=== PATIENT | female | born 1925 | race Caucasian/White ===

== ENCOUNTER 2017-01-01 10:52 | Inpatient (IN) | payer OTHER ==
[2017-01-01] MEDS ORDERED: BACITRACIN IRRIGATION/NS 50,000 UNITS/1,000 ML BTL IRR ONE (10:59)
[2017-01-01] MEDS ORDERED: ceFAZolin 2 GM/DEXTROSE 100 ML IV ONE (10:59)
[2017-01-01] MEDS ORDERED: NS 1,000 ML IV ONE (10:59)
[2017-01-01] MEDS ORDERED: DIAZEPAM 5 MG TAB PO ONE (10:59)
[2017-01-01] MEDS ORDERED: diphenhydrAMINE 25 MG CAP PO ONE (10:59)
--- NOTE | 2017-01-01 11:24 | CPEKG ---
Heart Rate: 65 RR Interval: 923 P-R Interval: 195 QRSD Interval: 132 QT Interval: 464 QTC Interval: 483 P [place]: 0 QRS [place]: -73 T Wave [place]: 122 EKG Severity - ABNORMAL ECG - EKG Impression: VENTRICULAR-PACED RHYTHM Electronically Signed By: Ulisses Cosme 01-Jan-2017 12:17:52
[2017-01-01 11:38] LABS: % IMMATURE GRANULYOCYTES 0.7 % (0.0-1.1); ABSOLUTE IMMATURE GRANULOCYTES 0.05 10^3/uL (0.00-0.10); ADD DIFF? NO; ADD MORPH? NO; ADD SCAN? NO; ATYPICAL LYMPHOCYTE FLAG 0 (0-99); FRAGMENT RBC FLAG 0 (0-99); HEMATOCRIT 40.8 % (38.0-47.0); HEMOGLOBIN 13.4 g/dL (12.6-16.3); LEFT SHIFT FLG 0 (0-99); LIPEMIA HEMOLYSIS FLAG 80 (0-99); MEAN CELL HEMOGLOBIN 29.8 pg (27.9-34.1); MEAN CELL HEMOGLOBIN CONCENTR. 32.8 g/dL (32.4-36.7); MEAN CELL VOLUME 90.7 fL (81.5-99.8); MEAN PLATELET VOLUME 10.5 fL (8.7-11.7); PLATELET CLUMPS FLAG 0 (0-99); PLATELET COUNT 253 10^3/uL (150-400); RED CELL DISTRIBUTION WIDTH 13.8 % (11.5-15.2)
[2017-01-01 11:51] LABS: ANION GAP 12 mEq/L (8-16); CARBON DIOXIDE 21 mEq/l (22-31); CHLORIDE 111 mEq/L (97-110); CREATININE 1.5 mg/dL (0.6-1.0); GLOMERULAR FILTRATION RATE 33; GLUCOSE 103 mg/dL (70-100); POTASSIUM 4.6 mEq/L (3.5-5.2); SODIUM 144 mEq/L (134-144)
[2017-01-01 11:55] LABS: INR 1.55 (0.83-1.16); PROTIME(PATIENT) 18.6 SEC (12.0-15.0)
[2017-01-01] MEDS ORDERED: MIDAZOLAM 2 MG/2 ML VIAL ONE (13:33)
[2017-01-01] MEDS ORDERED: LIDOCAINE 1% 30 ML SDV ONE ×2 (14:03→15:10)
[2017-01-01] MEDS ORDERED: BUPIVACAINE 0.5% 30 ML SDV ONE (14:04)
[2017-01-01] MEDS ORDERED: fentaNYL 100 MCG/2 ML INJ ONE (14:21)
[2017-01-01] MEDS ORDERED: FLUMAZENIL 0.5 MG/5 ML MDV IVP ONE (14:46)
[2017-01-01] MEDS ORDERED: NALOXONE HCL 0.4 MG/ML INJ ONE (14:52)
[2017-01-01] MEDS ORDERED: DOPamine/DEXTROSE/250 ML BAG IV ONE (14:55)
[2017-01-01] MEDS ORDERED: PHENYLEPHRINE 10 MG/ML SDV ONE (15:49)
[2017-01-01] MEDS ORDERED: PHENYLEPHRINE HCL 100 MCG/ML SYR ONE (15:54)
[2017-01-01] MEDS ORDERED: NITROGLYCERIN 0.4 MG BTL SL PRN (16:25)
[2017-01-01] MEDS ORDERED: traMADol 50 MG TAB PO PRN (16:25)
[2017-01-01] MEDS ORDERED: GABAPENTIN 300 MG CAP PO PRN (16:25)
[2017-01-02 04:23] LABS: % IMMATURE GRANULYOCYTES 0.5 % (0.0-1.1); ABSOLUTE IMMATURE GRANULOCYTES 0.15 10^3/uL (0.00-0.10); ADD DIFF? NO; ADD MORPH? NO; ADD SCAN? NO; ATYPICAL LYMPHOCYTE FLAG 0 (0-99); FRAGMENT RBC FLAG 0 (0-99); HEMATOCRIT 38.8 % (38.0-47.0); HEMOGLOBIN 12.7 g/dL (12.6-16.3); LEFT SHIFT FLG 20 (0-99); LIPEMIA HEMOLYSIS FLAG 80 (0-99); MEAN CELL HEMOGLOBIN CONCENTR. 32.7 g/dL (32.4-36.7); MEAN CELL VOLUME 91.5 fL (81.5-99.8); MEAN PLATELET VOLUME 10.8 fL (8.7-11.7); PLATELET CLUMPS FLAG 0 (0-99); PLATELET COUNT 150 10^3/uL (150-400); RED BLOOD CELL COUNT 4.24 10^6/uL (4.18-5.33); RED CELL DISTRIBUTION WIDTH 13.7 % (11.5-15.2)
[2017-01-02 04:39] LABS: ALANINE AMINOTRANSFERASE 39 IU/L (9-52); ALBUMIN 2.4 g/dL (3.5-5.0); ALKALINE PHOSPHATASE 55 IU/L (38-126); ANION GAP 8 mEq/L (8-16); ASPARTATE AMINOTRANSFERASE 35 IU/L (14-46); BILIRUBIN,TOTAL 0.6 mg/dL (0.1-1.4); CALCIUM 7.9 mg/dL (8.5-10.4); CARBON DIOXIDE 17 mEq/l (22-31); CHLORIDE 113 mEq/L (97-110); CREATININE 1.8 mg/dL (0.6-1.0); GLOMERULAR FILTRATION RATE 26; GLUCOSE 207 mg/dL (70-100); POTASSIUM 4.7 mEq/L (3.5-5.2); SODIUM 138 mEq/L (134-144); TOTAL PROTEIN 4.8 g/dL (6.3-8.2)
[2017-01-02] MEDS: ASPIRIN 81 MG CHEWABLE TAB PO SCH (08:35)
[2017-01-02] MEDS ORDERED: Herbals/Supplements -Info Only PO SCH (09:00)
--- NOTE | 2017-01-02 10:21 | GCON ---
[f rep st] CONSULTATION DATA MIGRATION LEAD CONSULTATION REASON FOR ADMISSION: Acute anaphylaxis. HISTORY OF PRESENT ILLNESS: The patient is a very pleasant 89-year-old white female who was in the EP lab for a pacemaker generator change. She had acute respiratory failure but did not require intu bation, and her blood pressure was somewhat low. She was admitted to the intensive care unit. She did well throughout her hospitalization, and she is markedly better this morning. She denies any ch est pain, pleuritic-type chest pain, or anginal equivalent. No fever or night sweats. She has a wa boo feeling of breathlessness but otherwise feels well and wishes to be discharged to go home. PAST MEDICAL HISTORY: Significant for atrial fibrillation, pacemaker placement, chronic renal insuf ficiency, hypertension. ALLERGIES: Codeine and latex. SOCIAL HISTORY: No history of tobacco use. No history of alcohol use. She resides at [place]. H er 3 years ago. PHYSICAL EXAM: VITAL SIGNS: Blood pressure is 154/65, pulse 70, respirations 21, temperature 36.4, oxygen saturation 92% on 3 L. GENERAL: She is a well-developed, well-nourished, elderly white fem grace who is resting comfortably in no acute distress. HEENT: Eyes: [place]IK[place]. EOMI. She has bilateral arcus senilis present. Throat shows no erythema or tonsillar hypertrophy. NECK: Supple. No cerv ical adenopathy. HEART: Irregularly regular with a 2/6 systolic murmur in the left sternal border without radiation. LUNGS: Diminished breath sounds but no wheeze. ABDOMEN: Soft, nontender. [place] el sounds are present in all 4 quadrants. EXTREMITIES: No clubbing, cyanosis, or edema. LABORATORIES: White count is 27,000, hemoglobin 12, hematocrit 38, and platelet count is 150. [place] um 138, potassium 4.7, chloride 113, CO2 17, BUN 22, creatinine 1.8, glucose is 26. IMPRESSION: 1. Anaphylaxis, cause of which is unclear at this time. 2. Respiratory, currently stable. 3. Atrial fibrillation. 4. Pacemaker, status post generator change. RECOMMENDATION: Patient is currently stable from a cardiovascular standpoint. I feel she is safe e nough to be discharged home. /[id number]/MODL
[2017-01-02] MEDS ORDERED: METOPROLOL SUCCINATE XR 25 MG TAB PO ONE (11:00)
[2017-01-02] MEDS ORDERED: LOSARTAN POTASSIUM 50 MG TAB PO ONE (11:00)
[2017-01-02] MEDS ORDERED: amLODIPine BESYLATE 5 MG TAB PO ONE (11:00)
[2017-01-02 12:32] LABS: HEMATOCRIT 38.2 % (38.0-47.0); HEMOGLOBIN 12.7 g/dL (12.6-16.3); MEAN CELL HEMOGLOBIN 30.2 pg (27.9-34.1); MEAN CELL HEMOGLOBIN CONCENTR. 33.2 g/dL (32.4-36.7); MEAN CELL VOLUME 90.7 fL (81.5-99.8); RED BLOOD CELL COUNT 4.21 10^6/uL (4.18-5.33); RED CELL DISTRIBUTION WIDTH 13.7 % (11.5-15.2)
[2017-01-02] MEDS: CEPHALEXIN 250 MG CAP PO SCH ×3 (13:37→22:14)
[2017-01-02] MEDS ORDERED: CEPHALEXIN 500 MG CAP PO SCH (14:00)
[2017-01-02 14:20] LABS: COLOR YELLOW; LEUKOCYTE ESTERASE,URINE NEGATIVE (NEGATIVE); NITRITE,URINE NEGATIVE (NEGATIVE)
--- NOTE | 2017-01-02 14:38 | PDCARPN ---
Cardiology Progress Note Chief Complaint: Patient reports pain and incisional site. Assessment/Plan: Assessment: 89 year old female with known history of paroxysmal atrial fibrillation, sick sinus syndrome, hypertension, NSVT, and dyslipidemia. Recent pacemaker check showing device ASA, elective pacemaker generator change yesterday, unfortunately , appears patient potentially had anaphylactic reaction to bacitracin when was use for generator pocket flush. Patient became extremely hypotensive with flash pulmonary edema. Requiring epinephrine, steroids, and H2 blockers. Remained in ICU overnight, with stable vital signs, afebrile. Has been AV paced throughout the evening. Noted this morning to have elevated white blood cell count up to 27 in comparison to pre of 7.27. Repeated WBC at noon showed even further elevation at 28.93. Patient denies of any chest pain or shortness of breath. Plan: Leukocytosis: Patient with significant elevation WBC status generator change, noted to have anaphylactic reaction, thought possibly due to bacitracin with device pocket flush. Differentials include stress-induced from anaphylactic reaction in surgery, elevation due to steroid, or possible infection. At this time, will start her on Keflex, UA to be done. Continue monitoring on PCU. Repeat laboratory studies in a.m.. Sick sinus syndrome: New pacemaker generator implanted yesterday. Patient has been AV paced. Paroxysmal atrial fibrillation: Currently AV paced, restarted on Pradaxa this evening (renal dose). Continue on home metoprolol dose. Hypertension: Continue on home medication of losartan, and metoprolol succinate. Hypothyroidism: Continue on home dose of Synthroid. Renal insufficiency: Creatinine 1.8 today after procedure, appears patient average creatinine 1.3-1.4, renal dose him antibiotics and Pradaxa, repeat BMP in a.m.. 01/02/17 14:35 Subjective: Patient denies of any chest pain, shortness of breath, palpitations, lightheadedness, or shortness of breath. Denies of any fevers, chills, or night sweats. Reviewed/Discussed With: family, multidisciplinary team (ICU and PRINT PRODUCTION COORDINATOR), other (Dr Cosme) Objective: Vital Signs (8 Hrs) Temp Pulse Resp BP Pulse Ox 01/02/17 13:14 37.1 C 70 16 138/68 H 92 01/02/17 12:00 71 13 96 01/02/17 11:00 37.0 C 71 16 145/55 H 93 01/02/17 07:33 36.4 C 70 21 H 154/65 H 93 Intake/Output (24 Hrs) 01/01/17 01/02/17 01/03/17 05:59 05:59 05:59 Intake Total 500 Output Total 0 200 Balance 500 -200 Intake: Oral (ml) 500 Output: Urine (ml) 0 200 Toilet 0 200 Other: Weight 58.967 kg Number of Voids Toilet 1 Number of Stools Toilet 1 Result Diagrams: 01/02/17 12:20 01/02/17 03:50 - Physical Exam Constitutional: WDWN, no apparent distress Ears, Nose, Mouth, Throat: moist mucous membranes Cardiovascular: regular rate and rhythm, no rubs, no gallops, systolic murmur ( 1 to 2/6 left sternal border.), pulses symmetric bilat, No jugular vein distention, No carotid bruit Peripheral Pulses: 1+: dorsalis-pedis (R), dorsalis-pedis (L), 2+: carotid (R), carotid (L) Respiratory: clear to auscultate bilat, no crackles, no wheezes Gastrointestinal: normoactive bowel sounds Skin: no rashes, warm, no edema, other (Pacemaker pocket, left anterior chest, incision with ecchymoses, but no hematoma intact with preeti. No redness, swelling, or drainage.) Neurologic: AAOx3, CN II-XII grossly intact Psychiatric: cooperative, interactive, following commands, not anxious ICD10 Worksheet Patient Problems: Problems Problem Status Onset Chest pain Acute Chest pain in adult Acute
[2017-01-02] MEDS ORDERED: ACETAMINOPHEN 325 MG TAB PO PRN (18:00)
[2017-01-02] MEDS ORDERED: diphenhydrAMINE 25 MG CAP PO SCH (21:00)
[2017-01-02] MEDS: DABIGATRAN ETEXILATE MESYL 75 MG CAP PO SCH (22:14)
[2017-01-03 04:53] LABS: % IMMATURE GRANULYOCYTES 0.6 % (0.0-1.1); ABSOLUTE IMMATURE GRANULOCYTES 0.13 10^3/uL (0.00-0.10); ADD DIFF? NO; ADD MORPH? NO; ADD SCAN? NO; ATYPICAL LYMPHOCYTE FLAG 0 (0-99); FRAGMENT RBC FLAG 0 (0-99); HEMATOCRIT 34.5 % (38.0-47.0); HEMOGLOBIN 11.5 g/dL (12.6-16.3); LEFT SHIFT FLG 0 (0-99); LIPEMIA HEMOLYSIS FLAG 80 (0-99); MEAN CELL HEMOGLOBIN 30.2 pg (27.9-34.1); MEAN CELL HEMOGLOBIN CONCENTR. 33.3 g/dL (32.4-36.7); MEAN CELL VOLUME 90.6 fL (81.5-99.8); MEAN PLATELET VOLUME 10.6 fL (8.7-11.7); PLATELET CLUMPS FLAG 0 (0-99); PLATELET COUNT 157 10^3/uL (150-400); RED BLOOD CELL COUNT 3.81 10^6/uL (4.18-5.33); RED CELL DISTRIBUTION WIDTH 13.8 % (11.5-15.2)
[2017-01-03 04:55] LABS: ANION GAP 7 mEq/L (8-16); CALCIUM 8.4 mg/dL (8.5-10.4); CARBON DIOXIDE 21 mEq/l (22-31); CHLORIDE 112 mEq/L (97-110); CREATININE 1.8 mg/dL (0.6-1.0); GLOMERULAR FILTRATION RATE 26; GLUCOSE 109 mg/dL (70-100); POTASSIUM 5.5 mEq/L (3.5-5.2); SODIUM 140 mEq/L (134-144)
[2017-01-03] MEDS ORDERED: LEVOTHYROXINE 88 MCG TAB PO SCH (06:00)
[2017-01-03] MEDS: CEPHALEXIN 250 MG CAP PO SCH (06:34)
[2017-01-03] MEDS: ASPIRIN 81 MG CHEWABLE TAB PO SCH (08:01)
[2017-01-03] MEDS: DABIGATRAN ETEXILATE MESYL 75 MG CAP PO SCH (08:01)
[2017-01-03 08:10] VITALS: RESP 18; TEMP 98; O2SAT 92
[2017-01-03] MEDS ORDERED: METOPROLOL SUCCINATE XR 50 MG TAB PO SCH (09:00)
[2017-01-03] MEDS ORDERED: LOSARTAN POTASSIUM 50 MG TAB PO SCH (09:00)
[2017-01-03] MEDS ORDERED: amLODIPine BESYLATE 5 MG TAB PO SCH (09:00)
--- NOTE | 2017-01-03 11:01 | GDS ---
[f rep st] DISCHARGE SUMMARY ADMISSION DIAGNOSES: 1. Sick sinus syndrome, with recent PPM check showing device ASA. 2. Paroxysmal atrial fibrillation. 3. Dyslipidemia. 4. Hypertension. 5. Hypothyroidism. 6. Chronic renal insufficiency. DISCHARGE DIAGNOSES: 1. Sick sinus syndrome, status post PPM and generator change, Medtronic. 2. Paroxysmal atrial fibrillation. 3. Hypertension. 4. Hyperlipidemia. 5. Hypothyroidism. 6. Chronic renal insufficiency. 7. Status post anaphylactic reaction. 8. Leukocytosis. PROCEDURES DONE DURING HOSPITALIZATION: 1. Electrocardiogram. 2. Chest x-ray. 3. Permanent pacemaker generator change. BRIEF HISTORY: The patient is an 89-year-old female who has a known history of sick sinus syndrome. Recent pacemaker check showed that her device was ASA. She was scheduled for an elective pacemake r generator change. HOSPITAL COURSE: The patient was admitted to the hospital through the C[facility]. She was prepped for the procedure and taken to the electrophysiology suite. There, her old pacemaker generator was removed , and a new Medtronic dual-chamber pacemaker was implanted. During the flushing of her pacemaker po cket with Bactrim, patient suddenly became very flushed, experienced pulmonary edema and hypotension , requiring subcutaneous epinephrine, IV steroids, and Benadryl. Vital signs stabilized and it was felt that potentially the patient had an anaphylactic reaction to the bacitracin that was used to fl ush her pocket. She was transferred to the intensive care unit, where she was monitored overnight. In the ICU, she remained stable, denying any chest pain or pressure. Yesterday's laboratory studie s did show a significant increase of white blood cell count, up to 28.93. Because of her leukocytos is, it was questioned that potentially this was due to recent steroid injection and the stress of th e anaphylactic reaction versus potentially infection from recent device implantation. It was decide d that she would stay one more night. She had been started on prophylactic antibiotics of Keflex. She had a urinalysis done which was negative. She has remained afebrile since her hospitalization. Today, she has been up and walking. She is reporting she is feeling better. She reports no pain o r lightheadedness. She denies any shortness of breath or chest pressure. Denies any palpitations. On elementary esl teacher throughout her hospitalization, she has been AV paced with no malignant arrhythm ias. It has been noted off this morning's laboratory studies that her creatinine has remained eleva luis at 1.8, usually 1.5, and her potassium is mildly elevated at 5.5. We have decided to discontinu e her losartan today, and her amlodipine dose has been increased to 10 mg. PHYSICAL EXAMINATION: GENERAL: A small statured, well-groomed female. She is alert and oriented to person, place, time, and situation. Appears to be in no acute distress. VITAL SIGNS: Current blood pressure of 160/72, heart rate 70, AV paced on monitor, pulse of 16, saturating 94% on room air, temperature 36.8 degrees Celsius. HEENT: Head is normocephalic. Lips and tongue are pi nk and moist with no signs of cyanosis. Conjunctivae pink. NECK: Trachea is midline. +2 carotid pulses bilateral. No auscultated bruits. No jugular vein distention. RESPIRATORY: Lungs clear to auscultation. No rhonchi, rales or wheezes. No accessory muscle use. No intercostal muscle retra ction noted. CARDIAC: Regular rate and regular rhythm. S1, S2. No S3, rubs, gallops, or murmur. ABDOMEN: Soft, nontender. Bowel sounds x4 quadrants. No organomegaly. No palpable masses. SKIN : [place], warm, dry. No cyanosis. No clubbing. No peripheral edema. VASCULAR: +2 carotids bilate ral, +2 radials bilateral, +1 posterior tibial pulses bilateral. PACEMAKER IMPLANTATION: Left anterior chest site mildly ecchymotic but no hematoma. Dressing gee e done yesterday with noted incision intact with preeti. No redness, swelling, or drainage noted a t incision site. LABORATORY STUDIES: Drawn today show a decrease in her white blood cell count to 22.42, hemoglobin 11.5, hematocrit of 34.5, platelet count of 157. Sodium 140, potassium 5.5, chloride 112, BUN 31, c reatinine 1.8, glucose 109, calcium 8.4. The patient did have a UA done which was all negative exce pt positive for ketones. STUDIES: Electrophysiology as mentioned above. Admission chest x-ray showed cardiomegaly with mild pulmonary vascular congestion and small effusions, left greater than right. DISCHARGE DISPOSITION: Patient will be discharged home in fair condition. She is under activity re strictions of no strenuous activity for the next 2 weeks. DISCHARGE MEDICATIONS: Please see discharge medication reconciliation sheet. Note that the patient 's home dose of losartan has been discontinued. She has been asked to increase her daily amlodipine to 10 mg p.o. daily. She has been restarted on her Pradaxa at renal dosage, and she is going home on Keflex at 250 mg every 8 hours, continue for the next 8 days. She has been asked to take Benadry l 12.5 mg p.o. daily for the next week. DISCHARGE INSTRUCTIONS: Post pacemaker generator change instructions went over with the patient and her grandson, including monitoring for signs of infection, activity restrictions, medication compli ance, and bathing precautions. At the time of discharge, the patient and her grandson both verbaliz ed understanding. The patient was asked to have laboratory studies drawn on Friday, including a rep eat CBC and BMP. She has a followup appointment for a device wound check and followup appointment w fior Cosme scheduled for next Friday. They have been told that if any problems or concerns pos t discharge, they are to call our office or return to the hospital. Total time spent on discharge: Greater than 30 minutes. /[id number]/MODL
[2017-01-03 11:22] VITALS: BP 173/77; PULSE 67
--- NOTE | 2017-01-03 14:11 | EPPROC ---
Electrophysiology Procedure Note: PROCEDURE PERFORMED: * AV Pacemaker generator change INDICATION: Pacemaker generator at ASA Bradycardia PROCEDURE NOTE: Patient presented to the cardiac catherization laboratory in a fasting, postabsorptive state. Moderate sedation administered. The left infraclavicular area was prepped and draped in the usual sterile fashion. Lidocaine plus bupivacaine was used for local anesthesia. Using a combination of blunt and sharp dissection and electrocautery, the dissection was carried down to the prepectoral fascia and the existing pacemaker pocket was opened. The pacemaker generator was disconnected from the leads and the lead thresholds and impedance were checked. The pacemaker pocket was copiously irrigated with antibiotic solution. The pocket was again inspected for any bleeding. The leads were attached to the pacemaker securely. The pacemaker was inserted into the pocket and secured in place with a nonabsorbable suture. At this time, the pt complained of feeling hot and then started dropping oxygen saturation and eventually stopped breathing. The pacemaker pocket was closed in 3 layers with absorbable monocryl sutures and preeti. Appropriate dressing was applied. Pt's airway was protected. Ambu bag was used. Solumedrol, Benadryl and subcut Epi was given. Dopamine given and then replaced with annabel. Reversal agents used. The patient eventually started breathing on her own and maintained oxygen saturation. The pt's BP started to recover. She was transferred to CVC with plan to observe her in the ICU overnight. Serial Numbers: * Device Medtronic Advisa [id number] * Atrial Lead Medtronic 5076 [id number] * Ventricular Lead Medtronic 5076 SN [id number] Stimulation Thresholds & Impedance Measurements: * Atrial Lead 3.9mV, 1.4@0.5ms, 573Ohms * Ventricular Lead 12.5mV, 0.4@0.5ms, 844Ohms Christiano Pacing Parameters * Pacing mode DDD * Lower rate 60 * Upper tracking rate 130 * Upper sensor rate 130 Patient Problems: Problems Problem Status Onset Chest pain Acute Chest pain in adult Acute
--- NOTE | 2017-01-07 09:15 | PQFORM ---
PHYSICIAN QUERY FORM Needs Your Response This query form is being sent to you to assure this patient record is coded properly. Please respond to the question below: AIRCRAFT SERVICER QUESTION: Dear Dr. Cosme, In reviewing this patients medical record it is documented in Dr. De Leon's consult that the patient suffered 'Acute respiratory failure and was admitted to ICU.' The procedure documents the patient 'stopped breathing and a ambu bag was used.' On the physical exam the patients oxygen saturation level was '92%'. After study, should the diagnosis of 'acute respiratory failure' to be included in the discharge summary? ___X___ Yes No Other more appropriate diagnosis Unable to determine Thank you MORENO [facility] HIM/Coding Dept [phone] INSTRUCTIONS FOR RESPONSE: Answer question by clicking on the "Edit Document" button. Move cursor to area below the stars. When complete, hit "Save." Click on the "Sign" button, then click "Sign" again. Type in your PIN and hit "Enter." MTDD
== END 2017-01-03 11:57 | disposition home or self-care (01) | DRG 907 ==
LOC: FCATH 10:52 → INTOOBSV 15:13 → F2N 15:13 → F2W 01-02 13:06 → OBSVTOIN 01-02 14:35
PROVIDERS: ADMIT Internal Medicine Cardiovascular Disease; ATTEND Internal Medicine Cardiovascular Disease
PROC: 0JPT0PZ Removal of Cardiac Rhythm Related Device from Trunk Subcutaneous Tissue and Fascia, Open Approach (ICD-10-PCS; principal; 2017-01-03)
PROC: 0JH606Z Insertion of Pacemaker, Dual Chamber into Chest Subcutaneous Tissue and Fascia, Open Approach (ICD-10-PCS; principal; 2017-01-03)
DX: T88.6XXA Anaphylactic reaction due to adverse effect of correct drug or medicament properly administered, initial encounter (principal); J96.00 Acute respiratory failure, unspecified whether with hypoxia or hypercapnia; I49.5 Sick sinus syndrome; I48.0 Paroxysmal atrial fibrillation; E78.5 Hyperlipidemia, unspecified; I12.9 Hypertensive chronic kidney disease with stage 1 through stage 4 chronic kidney disease, or unspecified chronic kidney disease; E03.9 Hypothyroidism, unspecified; N18.9 Chronic kidney disease, unspecified; T37.0X5A Adverse effect of sulfonamides, initial encounter
CPT/HCPCS: C1785; J0171; J0690; J1200; J1265; J1644; J2250; J2310; J2370; J3010